=== PATIENT | male | born 1990 | race Caucasian/White ===

== ENCOUNTER → 2019-02-20 13:27 | Outpatient (CLI) | payer MEDICAID, SELFPAY | PROVIDERS: PCP Family Medicine; Visit Provider Orthopaedic Surgery | DX: M25.561 Pain in right knee (principal) ==

== ENCOUNTER → 2019-03-18 08:41 | Outpatient (CLI) | payer MEDICAID, SELFPAY ==
--- NOTE | 2019-03-18 08:44 | CA_ITS ---
APPROVED REPORT EXAM: Comprehensive 2D, Doppler, and color-flow Echocardiogram Physical Therapy Asst: Elin Li, RT(R) Ht: 5 ft 9 in Wt: 205lbs BSA: 2.09 BP: 119/75 mmHg Indications: Chest Pain, Hypertension/HDD, smoker, history of heart surgery at age of 12, VSD repair? 2D Dimensions LVOT 2.10 cm (M/F) 1.5-2.5 M-Mode Dimensions RVDd 2.20 cm (0.9-2.6) LA Diam 4.40 cm (1.9-4.0) LVDd 4.20 cm (3.5-5.7) Ao Diam 2.70 cm (2.0-3.7) LVDs 3.10 cm (3.5-5.7) AV Cusp 2.00 cm (1.5-2.6) IVSd 0.90 cm (0.6-1.1) PWd 0.90 cm (0.6-1.1) EF (Teich) 51.80% FS 26.20% EDV (Teich) 78.60 mL ESV (Teich) 37.90 mL LV Diastology E/A Ratio 1.2 MED E' 11.00 (< 7 cm/sec) E'/MED E' Ratio 8.90 (>14) LAT E' 15.00 (<10 cm/sec) E/LAT E' Ratio 6.50 (>14) Mitral Valve MV E Max Baljit. 97.40 (40-130 cm/s) MV A Velocity 80.20 (40-130 cm/s) E/A Ratio 1.20 Left Ventricle Left atrium is normal size, left ventricle is normal size, there is no concentric left ventricular hypertrophy, visually estimated ejection fraction 55% with no regional wall motion abnormality, there is abnormal septal motion. Diastolic parameters are within normal range. Right Ventricle Right atrium and right ventricular normal size and contractility. Aortic Valve Aortic valve is minimally thickened and fibrosed. There is no aortic stenosis aortic insufficiency. Mitral Valve Mitral valve is grossly normal, there is mild mitral regurgitation. Tricuspid Valve Tricuspid valve is grossly normal, there is mild tricuspid regurgitation, tricuspid regurgitation jet velocity is inadequate for calculation of the right ventricular systolic pressure. Pulmonic Valve Pulmonic valve is poorly visualized, the pulmonic outflow velocity is increased to 2 m/s, resulting in a peak instantaneous gradient of 16 mmHg, this represents mild pulmonic stenosis, there is mild pulmonic insufficiency present. Great Vessels Aortic root is normal size. Pericardium No significant pericardial effusion noted. Conclusion 1. Normal left ventricular size, preserved left ventricular systolic function, visually estimated ejection fraction 55% with no regional wall motion abnormality, diastolic parameters are within normal range, there is abnormal septal motion. 2. Mild mitral and tricuspid regurgitation 3. The pulmonic valve is not well visualized, the pulmonic outflow velocity increased to 2 m/s, resulting in a peak instantaneous gradient of 16 mmHg, this likely represents mild pulmonic stenosis, there is mild pulmonic insufficiency. 4. No significant pericardial effusion noted. Electronically signed by : Sammy Alvarado, 03/19/2019 06:15:42
== END ==
PROVIDERS: PCP Family Medicine; Visit Provider Urology
DX: I42.0 Dilated cardiomyopathy (principal); R07.89 Other chest pain; F17.200 Nicotine dependence, unspecified, uncomplicated
CPT/HCPCS: 93306

== ENCOUNTER → 2019-04-04 14:17 | Outpatient (CLI) | payer MEDICAID, SELFPAY ==
--- NOTE | 2019-04-04 14:23 | MR_ITS ---
PROCEDURE: MR KNEE RT WO CON CLINICAL INDICATION: evaluate for MCL tear Twisting injury with pain and popping COMPARISON: XR KNEE RT 3V from 02/04/2019 TECHNIQUE: Routine multiplanar multi echo sequences are performed without gadolinium enhancement. FINDINGS: The cruciate ligaments, collateral ligaments, the popliteal tendon and quadriceps tendon are intact. There is a horizontal tear involving the posterior horn of the medial meniscus posteriorly. The tear does not appear to extend to the articular surface but does appear to extend to the peripheral aspect of the meniscus posteriorly. There is mild thinning of the patellar cartilage with mild osteoarthritic change at the patellofemoral joint. There is increased T2 signal involving the patella centrally and inferiorly as well as the medial and lateral femoral condyles peripherally. There is a small knee joint effusion IMPRESSION: 1. Horizontal tear of the posterior horn of the medial meniscus extending to the posterior edge of the meniscus but not involving the articular surface 2. Osteoarthritic change of the patellofemoral joint. 3. Mild bone marrow edema of the patella and the peripheral aspect of the medial and lateral femoral condyle which may be posttraumatic/due to contusion. 4. Small knee joint effusion Dictated by: Corey Wood MD 04/04/2019 18:25 Electronically signed by Corey Wood MD in [place] 04/05/2019 06:41
== END ==
PROVIDERS: PCP Family Medicine; Visit Provider Orthopaedic Surgery
DX: S83.411A Sprain of medial collateral ligament of right knee, initial encounter (principal)
CPT/HCPCS: 73721

== ENCOUNTER → 2020-03-15 10:28 | Outpatient (CLI) | payer MEDICAID, SELFPAY ==
--- NOTE | 2020-03-15 10:35 | CA_ITS ---
APPROVED REPORT EXAM: Comprehensive 2D, Doppler, and color-flow Echocardiogram Potato Grader: Azeb Cabral RDCS Ht: 5 ft 9 in Wt: 232lbs BSA: 2.20 BP: 98/75 mmHg Indications: LACEY,DOESMOKER, H/O PULMONIC STENOSIS 2D Dimensions LVOT 1.96 cm (M/F) 1.5-2.5 M-Mode Dimensions RVDd 2.24 cm (0.9-2.6) LVDd 5.02 cm (3.5-5.7) LVDs 3.80 cm (3.5-5.7) IVSd 0.76 cm (0.6-1.1) PWd 0.61 cm (0.6-1.1) EF (Teich) 48.00% FS 24.30% EDV (Teich) 119.30 mL ESV (Teich) 62.00 mL LV Diastology E/A Ratio 1.03 Mitral Valve MV A Velocity 75.00 (40-130 cm/s) Left Ventricle Left atrium is normal size, left ventricle is normal size, there is no concentric left ventricular hypertrophy, visually estimated ejection fraction 55% with no regional wall motion abnormality. Diastolic parameters are within normal range. Right Ventricle Right atrium and right ventricular normal size and contractility. Aortic Valve Aortic valve is grossly normal, there is no aortic stenosis or aortic insufficiency. Mitral Valve Mitral valve is grossly normal, there is mild mitral regurgitation. Tricuspid Valve Tricuspid valve grossly normal, there is mild tricuspid regurgitation, tricuspid regurgitation jet velocity is inadequate for calculation of the right ventricular systolic pressure. Pulmonic Valve Pulmonic valve is poorly visualized. There is increased velocity of 2.5 m/s across pulmonic valve the mean gradient and peak gradient is not calculated, this likely represents mild pulmonic stenosis. There is no significant pulmonic insufficiency seen. Great Vessels Aortic root is normal size. Pericardium No significant pericardial effusion noted Conclusion 1. Normal left ventricular size, preserved left ventricular systolic function, visually estimated ejection fraction 55% with no regional wall motion abnormality, diastolic parameters are within normal range. 2. Mild mitral and tricuspid regurgitation. 3. Likely mild pulmonic stenosis as described above. 4. No significant pericardial effusion noted. Electronically signed by : Sammy Alvarado 03/15/2020 20:49:38
== END ==
PROVIDERS: PCP Family Medicine; Visit Provider Nurse Practitioner Family
DX: R06.00 Dyspnea, unspecified (principal); R07.89 Other chest pain
CPT/HCPCS: 93306

== ENCOUNTER → 2021-03-09 08:32 | Outpatient (CLI) | payer MEDICAID, SELFPAY ==
--- NOTE | 2021-03-09 08:35 | CA_ITS ---
APPROVED REPORT EXAM: Comprehensive 2D, Doppler, and color-flow Echocardiogram Process Control Programmer: Sandrine Otto CRT Ht: 5 ft 9 in Wt: 216lbs BSA: 2.13 BP: 113/70 mmHg Indications: PV Stenosis,, CM, abn ekg 2D Dimensions LVOT 1.89 cm (M/F) 1.5-2.5 LA Volume 36.00 mL LA Volume Index 16.90 mL/m2 (M/F) 16-34 M-Mode Dimensions RVDd 3.68 cm (0.9-2.6) LA Diam 3.45 cm (1.9-4.0) LVDd 3.98 cm (3.5-5.7) Ao Diam 3.83 cm (2.0-3.7) LVDs 2.71 cm (3.5-5.7) IVSd 0.84 cm (0.6-1.1) PWd 0.64 cm (0.6-1.1) EF (Teich) 60.50% FS 31.90% EDV (Teich) 69.20 mL TAPSE 1.96 (<1.7) ESV (Teich) 27.30 mL LV Diastology E Decel Time 217.00 (160-240 msec) E/A Ratio 1.29 MED E' 9.10 (< 7 cm/sec) MED A' 6.90 cm/s E'/MED E' Ratio 9.18 (>14) LAT E' 13.70 (<10 cm/sec) LAT A' 11.10 cm/s E/LAT E' Ratio 6.09 (>14) Aortic Valve AO Peak GR. 6.70 mmHg Mitral Valve MV A Velocity 65.00 (40-130 cm/s) E/A Ratio 1.29 MV Decel. Time 217.00 (160-240 ms) Pulmonary Valve PV Peak Velocity 145.00 (50-150 cm/s) Tricuspid Valve TR P. Velocity 195.00 cm/s RAP Estimate 10.00 mmHg RVSP 25.20 mmHg Left Ventricle Left atrium is normal size, left ventricle is normal size, there is no concentric left ventricular hypertrophy, visually estimated ejection fraction 55% with no regional wall motion abnormality. Diastolic parameters are within normal range. Right Ventricle Right atrium and right ventricle are normal size and contractility. Aortic Valve Aortic valve is grossly normal, there is no aortic stenosis or aortic insufficiency. Mitral Valve Mitral valve is grossly normal, there is trace mitral regurgitation. Tricuspid Valve Tricuspid valve grossly normal, there is trace tricuspid regurgitation, tricuspid regurgitation jet velocity is inadequate for calculation of the right ventricular systolic pressure. Pulmonic Valve Pulmonic valve leaflets are not well visualized, the maximum pulmonic outflow velocity recorded 2 m/s resulting in a peak instantaneous gradient of 16 mmHg, represents mild pulmonic stenosis, there is mild pulmonic insufficiency. Great Vessels Aortic root is normal size. Inferior vena cava is normal size with normal inspiratory collapse. Pericardium No significant pericardial effusion noted Conclusion 1. Normal left ventricular size, preserved left ventricular systolic function, visually estimated ejection fraction 55% with no regional wall motion abnormality, diastolic parameters are within normal range. 2. Likely mild pulmonic stenosis, peak gradient is only 16 mmHg, valve itself is not well visualized. There is mild pulmonic insufficiency. 3. No significant pericardial effusion noted. Electronically signed by : Sammy Alvarado MD 03/10/2021 10:25:50
--- NOTE | 2021-03-09 08:35 | CA_ITS ---
APPROVED REPORT Exam: Exercise Treadmill Technologist: Catia Leslie Ht: 5 ft 9 in Wt: 216 lbs BSA: 2.13 m2 HR: 68 bpm BP: 122/67 mmHg Indications: Chest pain Medical History Medications: Isosorbide,,,,, Aspirin,,,,, Carvedilol,,,,, LoraTidine,,,,, Stress Test Details Test: Jose HR Resting HR: 72 bpm Max Heart Rate (APMHR): 189.395910 bpm Max HR Achieved: 148 bpm Target HR (85% APMHR): 160.588797 bpm % of APMHR: 78.31 Recovery HR: 79 bpm BP Resting BP: 122.0/67.0 mmHg Max BP: 154.0/89.0 mmHg Recovery BP: 117.0/80.0 mmHg ECG Resting ECG: NORMAL SINUS RHYTHM Clinical Exercise duration: 09:16 min Highest Stage Achieved: Exercise capacity: 10.1 METs Stress ECG Conclusion Patient exercised 9:16 on Jose Protocol. Test stopped due to shortness of air, fatigue. Symptoms: No chest pain Arrhythmias/Ectopy: None ST-T Changes: Normal ST response to exercise. Conclusion: Normal GXT to heart rate achieved (78% of PM). Blunted heart rate response on Carvedilol. GXT only (no imaging). Test Summary REST . . . . . . . Sitting REST . . . . . . . Standing REST 03:18 0.0 0.0 72 . 122/ 67 . . Stage 1 01:00 10.0 1.7 98 . . . . Stage 1 02:00 10.0 1.7 101 . . . . Stage 1 03:00 10.0 1.7 99 . 134/ 80 . . Stage 2 01:00 12.0 2.5 111 . . . . Stage 2 02:00 12.0 2.5 115 . . . . Stage 2 03:00 12.0 2.5 114 . 140/ 82 . . Stage 3 01:00 14.0 3.4 128 . . . . Stage 3 02:00 14.0 3.4 133 . . . . Stage 3 03:00 14.0 3.4 138 . 148/ 80 . . Stage 4 00:16 16.0 4.2 142 . . . Stop exercise at 09:16 RECOVERY 01:00 0.0 0.0 120 . 150/ 76 . . RECOVERY 02:00 0.0 0.0 92 . 150/ 76 . . RECOVERY 03:00 0.0 0.0 87 . 154/ 89 . . RECOVERY 04:00 0.0 0.0 82 . 135/ 79 . . RECOVERY 05:00 0.0 0.0 80 . 117/ 80 . . RECOVERY 05:15 0.0 0.0 80 . 117/ 80 . . Electronically signed by : Sammy Alvarado MD 03/10/2021 09:52:40
== END ==
PROVIDERS: PCP Family Medicine; Visit Provider Nurse Practitioner Family
DX: R07.89 Other chest pain (principal); R06.00 Dyspnea, unspecified; I37.0 Nonrheumatic pulmonary valve stenosis; R94.31 Abnormal electrocardiogram [ECG] [EKG]; F41.9 Anxiety disorder, unspecified; F17.200 Nicotine dependence, unspecified, uncomplicated
CPT/HCPCS: 93017; 93306

== ENCOUNTER → 2022-10-04 08:21 | Outpatient (CLI) | payer MEDICAID, SELFPAY ==
[2022-10-04 10:09] LABS: Blood Urea Nitrogen 19 mg/dl (9-20); Estimated Glomerular Filt Rate 86 ml/min (>60); GFR (African American) 104 ML/MIN (>60)
== END ==
PROVIDERS: PCP Family Medicine; Visit Provider Nurse Practitioner Family
DX: Z01.812 Encounter for preprocedural laboratory examination (principal)
CPT/HCPCS: 36415; 82565; 84520

== ENCOUNTER → 2022-10-05 08:12 | Outpatient (CLI) | payer MEDICAID, SELFPAY ==
[2022-10-05 08:45] VITALS: BMI 32.5
[2022-10-05 08:53] VITALS: BP 127/73; PULSE 58; RESP 18; TEMP 36.2; O2SAT 98
[2022-10-05 09:20] VITALS: BP 117/77; PULSE 55; RESP 18; O2SAT 100
== END ==
PROVIDERS: PCP Family Medicine; Visit Provider Nurse Practitioner Family
DX: R07.89 Other chest pain (principal); R94.31 Abnormal electrocardiogram [ECG] [EKG]; I10 Essential (primary) hypertension; I37.0 Nonrheumatic pulmonary valve stenosis; I42.0 Dilated cardiomyopathy; F17.200 Nicotine dependence, unspecified, uncomplicated
CPT/HCPCS: 75574; Q9967

== ENCOUNTER → 2022-11-02 10:34 | Outpatient (CLI) | payer MEDICAID, SELFPAY | PROVIDERS: PCP Internal Medicine Cardiovascular Disease; Visit Provider Nurse Practitioner Family | DX: R07.89 Other chest pain (principal); I42.0 Dilated cardiomyopathy; I37.0 Nonrheumatic pulmonary valve stenosis; I10 Essential (primary) hypertension; R94.31 Abnormal electrocardiogram [ECG] [EKG]; F17.200 Nicotine dependence, unspecified, uncomplicated | CPT/HCPCS: 93306 ==

== ENCOUNTER 2022-11-13 17:46 | Emergency (ER) | payer MEDICAID, SELFPAY ==
[2022-11-13 17:51] VITALS: BP 131/84; PULSE 79; O2SAT 100
[2022-11-13 17:54] VITALS: BP 131/84; PULSE 75; RESP 20; TEMP 36.6; O2SAT 100; BMI 30.2
[2022-11-13 18:00] VITALS: BP 123/87; PULSE 78; O2SAT 99
--- NOTE | 2022-11-13 18:05 | HMH.EDGENADL ---
Discharge Plan Disposition Patient Disposition: Home, Self-Care Prescriptions Prescriptions: New ciprofloxacin HCl 500 mg tablet 500 mg PO BID Qty: 14 0RF doxycycline hyclate 100 mg capsule 100 mg PO BID Qty: 14 0RF No Action fenofibrate nanocrystallized 145 mg tablet 145 mg PO DAILY Label Comments: TAKE 1 TABLET BY MOUTH EVERY DAY carvedilol 6.25 mg tablet 12.5 mg PO BID Rx Instructions: TAKE 1 TABLET BY MOUTH TWICE A DAY isosorbide mononitrate 30 mg tablet extended release 24 hr 30 mg PO DAILY Rx Instructions: TAKE 1 TABLET BY MOUTH EVERY DAY IN THE MORNING aspirin 81 mg tablet,delayed release (DR/EC) 325 mg PO DAILY Rx Instructions: TAKE 1 TABLET BY MOUTH EVERY DAY Activity Restrictions/Add. Instructions Additional Instructions/Restrictions: Return for worsening pain swelling or any other concerns within the next 48 hours otherwise follow-up with your primary care physician within the next few days Clinical Impressions Clinical Impression: Cellulitis Instructions Patient Instructions: DI for Skin Abscess Discharge ED Provider: Alejandro Benavides General Adult HPI General Chief complaint: Skin/Abscess/Foreign Body Stated complaint: AO 5/10 knot in bend of right arm Time Seen by Provider: 11/13/22 18:00 Mode of Arrival: Ambulatory Source of Information: Patient Limitations: No Limitations Description of Symptoms (Recalled from ER Triage Doc. by RN): pt to ed c/o right elbow knot. pt states he had a nail injury to his right hand x1 week ago and was treated for with abx. pt states he noticed the knot on his elbow today. History of Present Illness HPI narrative: 32-year-old male says that he had a nail injury in his right hand 1 week ago. He was treated with Keflex for 7 days however has ended that prescription and now he feels like he has a knot developing around his elbow and little bit pain in his hand. No swelling redness warmth no numbness weakness or tingling in arms or legs. He was given a tetanus shot 4 years ago Related Data Home Medications Medication Instructions Recorded Confirmed fenofibrate nanocrystallized 145 145 mg PO DAILY Cholesterol 05/22/22 10/10/22 mg tablet aspirin 81 mg tablet,delayed 325 mg PO DAILY heart healthy 10/05/22 10/10/22 release carvedilol 6.25 mg tablet 12.5 mg PO BID bp/hr 10/05/22 10/10/22 isosorbide mononitrate 30 mg 30 mg PO DAILY bp 10/05/22 10/10/22 tablet,extended release 24 hr Previous Rx's Medication Instructions Recorded ciprofloxacin HCl 500 mg tablet 500 mg PO BID #14 tabs 11/13/22 doxycycline hyclate 100 mg capsule 100 mg PO BID #14 caps 11/13/22 Allergies Allergy/AdvReac Type Severity Reaction Status Date / Time No Known Allergies Allergy Verified 10/10/22 12:15 [facility] Disclaimer: The information contained in this section may have been updated after the patient was seen, as this information can be updated by other users. Medical History Abnormal EKG Allergies Anxiety Anxiety Cardiomyopathy Chest pain Coronary artery disease Dyspnea History of gastroesophageal reflux (GERD) HTN (hypertension) Hyperlipidemia Pulmonic stenosis Pulmonic stenosis Urinary tract infection Surgical History History of right coronary artery stent placement S/P cardiac catheterization Family History Other Cancer Coronary artery disease Diabetes Hypertension Social History Smoking Status: Never smoker alcohol intake: never substance use type: denies use current occupational status: unemployed Travel in the last 8 weeks: None caffeine: Yes ROS Obtained: Yes All systems reviewed & no additional complaints except as documented Constitutional Constitutional:
[2022-11-13 18:46] VITALS: BP 101/78; PULSE 76; RESP 19; TEMP 36.6; O2SAT 100
== END 2022-11-13 18:48 | disposition home or self-care (01) ==
PROVIDERS: Emergency Provider Emergency Medicine; PCP Internal Medicine Cardiovascular Disease
DX: L03.113 Cellulitis of right upper limb (principal)
CPT/HCPCS: 99283; 99284

== ENCOUNTER 2024-06-11 12:41 | Outpatient (CLI) | payer MEDICAID, SELFPAY ==
--- NOTE | 2024-06-11 12:43 | CA_ITS ---
APPROVED REPORT EXAM: Comprehensive 2D, Doppler, and color-flow Echocardiogram Business Applications Manager: Laney Qiu, RCS, RVS Ht: 5 ft 9 in Wt: 206lbs BSA: 2.09 BP: 109/65 mmHg Indications: Congenital Pulmonic valve stenosis, catheter based procedurex2 in childhood, Hx-VSD repair, Abn ekg, Smoker, CP, HTN Echo Enhancing Agent Indication: Rule out Shunt Agent(s) / Amount(s) Used: Agitated Saline 20 cc Comments: Positive for interatrial shunt without provocation 2D Dimensions Left Atrium 3.16 cm LA Volume 58.50 mL LA Volume Index 27.676092 mL/m2 (M/F) 16-34 EF AP4 51.90 % GL Strain -17.3 % M-Mode Dimensions RVDd 2.35 cm (0.9-2.6) LA Diam 3.53 cm (1.9-4.0) LVDd 4.73 cm (3.5-5.7) LVDs 3.05 cm (3.5-5.7) IVSd 0.87 cm (0.6-1.1) PWd 0.91 cm (0.6-1.1) EF (Teich) 65.00% EPSs 1.01 cm FS 35.50% EDV (Teich) 103.90 mL TAPSE 2.06 (<1.7) ESV (Teich) 36.40 mL LV Diastology E Decel Time 130 (160-240 msec) E/A Ratio 1.22 MED A' 10.20 cm/s LAT A' 10.80 cm/s Aortic Valve ADELFO Index 1.06 cm2/m2 AoV Peak Baljit. 151.0 (50-130 cm/s) AI PHT 537.00 ms AO Peak GR. 9.10 mmHg AO Mean GR. 3.80 (<5 mmHg) AO VTI 28.5 (18-25 cm) ADELFO (VTI) 2.26 (2.5-4.5 cm2) Mitral Valve MV A Velocity 65.0 (40-130 cm/s) E/A Ratio 1.22 Pulmonary Valve PV Peak Velocity 182.0 (50-150 cm/s) CA End VMAX 189.0 cm/s Left Ventricle The left ventricle is normal size. Left ventricular systolic function is mildly decreased. There is normal left ventricular wall thickness. There is mild global hypokinesis present. The septum is asynchronous. The left ventricular diastolic function is normal. No evidence of residual VSD. LVEF is 45%. Right Ventricle The right ventricle is normal size. The right ventricular systolic function is normal. Atria The left atrium size is normal. The right atrium size is normal. There is presence of left to right interatrial shunt on color Doppler. Agitated saline administration also demonstrates presence of interatrial shunt. Aortic Valve The aortic valve opens well. There is no aortic valvular stenosis. Mild to moderate aortic regurgitation. Mitral Valve The mitral valve is normal in structure. No evidence of mitral valve stenosis. Mild mitral regurgitation. Tricuspid Valve Tricuspid valve is grossly normal in structure and function. Trace tricuspid regurgitation. There is insufficient TR jet to estimate RVSP. Pulmonic Valve History of congenital pulmonic stenosis. The pulmonary valve is normal in structure. Moderate pulmonic regurgitation. Great Vessels The aortic root is normal in size. IVC is normal in size and collapses >50% with inspiration. Pericardium There is no pericardial effusion. Other Information Study Quality: Fair Conclusion Mildly reduced LV systolic function (LVEF 45%). History of congenital pulmonic stenosis, now with moderate PI. Mild to moderate AI. s/p VSD repair. No evidence of residual VSD. Presence of interatrial shunt (positive bubble study at rest and with sniff and Valsalva maneuvers). Further evaluation for LV systolic function, as well as valvular diseases, and presence/location/sizing of the interatrial shunt is recommended with cardiac MRI (cardiomyopathy protocol) + MERLYN. Electronically signed by : Delia Nuñze MD 06/22/2024 11:48:28
== END 2024-06-11 23:59 | disposition home or self-care (01) ==
LOC: RT 12:41
PROVIDERS: PCP Internal Medicine Cardiovascular Disease; Visit Provider Physician Assistant
DX: I37.0 Nonrheumatic pulmonary valve stenosis (principal)
CPT/HCPCS: 93306

== ENCOUNTER 2024-09-03 09:29 | Outpatient (CLI) | payer MEDICAID, SELFPAY ==
[2024-09-03 09:58] LABS: Anion Gap 6.4 mEq/L (5-15); Blood Urea Nitrogen 18 mg/dl (9-20); Calcium 9.3 mg/dl (8.4-10.2); Carbon Dioxide 29 mmol/L (22.0-30.0); Chloride 107 mmol/L (98-107); Estimated Glomerular Filt Rate 86 ml/min (>60); GFR (African American) 103 ML/MIN (>60); Glucose 95 mg/dl (74-100); Potassium 4.4 mmoL/L (3.5-5.1); Sodium 138 mmol/L (136-145)
[2024-09-03] MEDS: 0.9% SODIUM CHLORIDE 20ML VIAL 20 ML IV (11:53)
[2024-09-03] MEDS: SODIUM CHLORIDE 0.9% 10ML SYR (RAD ONLY) 10 ML IV (11:53)
[2024-09-03] MEDS: GADOTERIDOL INJ 20ML SYRINGE 20 ML IV (11:53)
== END 2024-09-03 23:59 | disposition home or self-care (01) ==
LOC: RAD 09:29
PROVIDERS: PCP Internal Medicine Cardiovascular Disease; Visit Provider Physician Assistant
DX: I42.8 Other cardiomyopathies (principal); I10 Essential (primary) hypertension; Z87.74 Personal history of (corrected) congenital malformations of heart and circulatory system
CPT/HCPCS: 36415; 75561; 80048; A9576

== ENCOUNTER 2024-12-16 07:51 | Day surgery (SDC) | payer MEDICAID, SELFPAY ==
[2024-12-15 14:24] VITALS: BMI 31.0
[2024-12-16] MEDS: LACTATED RINGERS 1000ML 1,000 ML 50 ML IV (08:23)
[2024-12-16 08:26] VITALS: BP 108/63; PULSE 63; RESP 18; TEMP 36.3; O2SAT 98
--- NOTE | 2024-12-16 08:34 | ECG_ITS ---
APPROVED REPORT Exam: Resting ECG HR:56 bpm ECG Measurements Heart Rate 56 AXES NM 193 P 40 QRSd 96 QRS 8 QT 392 T 18 QTc 383 Conclusion SINUS BRADYCARDIA BORDERLINE ECG UNCONFIRMED REPORT Electronically signed by : Fran Mike MD 12/17/2024 08:50:43
[2024-12-16 08:37] LABS: Basophils % 0.6 % (0.1-2.0); Eosinophils # 0.1 Kmm3 (0.0-0.4); Eosinophils % 1.3 % (0.1-12.0); Hematocrit 44.4 % (42.0-52.0); Hemoglobin 15.1 g/dL (14.1-18.0); Immature Granulocytes # 0.01 10^3uL; Immature Granulocytes % 0.1 %; Lymphocytes # 2.4 K/mm3 (0.7-4.5); Lymphocytes % 34.2 % (10-50); Mean Corpuscular Hemoglobin 30.3 pg (27.0-31.2); Mean Platelet Volume 9.7 fl (7.4-10.4); Monocytes # 0.7 K/mm3 (0.1-1.0); Monocytes % 9.7 % (1.7-9.3); Neutrophils # 3.9 K/mm3 (1.8-7.8); Neutrophils % 54.1 % (37.0-80.0); Nucleated Red Blood Cells # 0 10^3/uL; Nucleated Red Blood Cells % 0 %; Platelet Count 213 K/mm3 (142-424); Red Blood Count 4.99 M/mm3 (4.60-6.20); Red Cell Distribution Width 12.9 % (11.5-17.5); Red Cell Distribution Width-SD 42.1 fL; White Blood Count 7.1 K/mm3 (4.8-10.8)
[2024-12-16 08:50] LABS: Chloride 104 mmol/L (98-107); INR 0.97 (0.9-1.1); Potassium 4.1 mmoL/L (3.5-5.1); Prothrombin Time 10.8 seconds (10.1-12.5); Sodium 138 mmol/L (136-145)
[2024-12-16 08:53] LABS: Anion Gap 12.1 mEq/L (5-15); Blood Urea Nitrogen 17 mg/dl (9-20); Carbon Dioxide 26 mmol/L (22.0-30.0); Creatinine Clearance Estimated 139 mL/min (50-200); Estimated Glomerular Filt Rate 85 ml/min (>60); GFR (African American) 103 ML/MIN (>60)
[2024-12-16 08:54] LABS: Calcium 9.1 mg/dl (8.4-10.2); Glucose 101 mg/dl (74-100)
--- NOTE | 2024-12-16 09:00 | CA_ITS ---
APPROVED REPORT EXAM: Comprehensive 2D, Doppler, and color-flow Echocardiogram Professional Poker Player: Christianne MelaramanNERY Ht: 5 ft 9 in Wt: 214lbs BSA: 2.13 BP: 120/75 mmHg Indications: PULMONIC STENOSIS AND VSD REPAIR A CHILD Procedure After obtaining informed consent, patient underwent transesophageal echo in the [facility]. Type of Sedation : MAC Sedation start time: 10:05 Case end Time: 10:20 Transesophageal probe was inserted and advanced into esophagus without difficulty by Dr. Joe Nuñez. The MERLYN was performed without complications. Throughout the procedure, the blood pressure, pulse oximetry, cardiac rhythm, and rate were monitored. The patient tolerated the procedure without adverse effects. Recovery from conscious sedation was uneventful and vital signs were stable. Left Ventricle The left ventricle is normal size. The left ventricular systolic function is low-normal. There is normal left ventricular wall thickness. There is normal LV segmental wall motion. History of VSD s/p repair during childhood. There is no residual ventricular septal defect visualized. LVEF is 50%. Right Ventricle The right ventricle is normal size. The right ventricular systolic function is normal. Atria The left atrium size is normal. No thrombus is visualized in the left atrium or appendage. The right atrium size is normal. There is a PFO with presence of left to right interatrial shunt. The PFO tunnel length measures 0.8 cm. The tunnel width measures 0.3 cm. Agitated saline administration demonstrates migration of bubbles from the right atrium into the left atrium through the PFO. Aortic Valve The aortic valve is normal in structure. There is no aortic valvular stenosis. Trace aortic regurgitation. Mitral Valve The mitral valve is normal in structure. No evidence of mitral valve stenosis. Trace mitral regurgitation. Tricuspid Valve Tricuspid valve is grossly normal in structure and function. Trace tricuspid regurgitation. There is insufficient TR jet to estimate RVSP. Pulmonic Valve History of congenital pulmonic stenosis s/p balloon valvuloplasty. Mild pulmonic regurgitation. Great Vessels The aortic root is normal in size. The ascending aorta is normal in size. IVC is normal in size and collapses >50% with inspiration. Pericardium There is no pericardial effusion. Other Information Study Quality: Fair Conclusion Normal biventricular systolic function. History of congenital pulmonic stenosis s/p valvuloplasty during childhood. Mild PI. History of child with VSD s/p repair. No evidence of residual VSD. There is a PFO with presence of left to right interatrial shunt. The PFO tunnel length measures 0.8 cm. The tunnel width measures 0.3 cm. Agitated saline administration demonstrates migration of bubbles from the right atrium into the left atrium through the PFO. Electronically signed by : Delia Nuñez MD 12/25/2024 14:42:24
--- NOTE | 2024-12-16 09:01 | EXP.ANES.CKL ---
[facility] Disclaimer: The information contained in this section may have been updated after the patient was seen, as this information can be updated by other users. Medical History Urinary tract infection Anxiety History of gastroesophageal reflux (GERD) Allergies Hyperlipidemia Pulmonic stenosis Coronary artery disease Cardiomyopathy HTN (hypertension) Anxiety Abnormal EKG Pulmonic stenosis Dyspnea Chest pain Surgical History History of ventricular septal defect repair History of right coronary artery stent placement S/P cardiac catheterization Family History Other Cancer Coronary artery disease Diabetes Hypertension Social History Smoking Status: Current every day smoker tobacco type: cigarettes packs per day: 1 alcohol intake: never substance use type: denies use current occupational status: unemployed Travel in the last 8 weeks?: None caffeine: Yes Have you lived/traveled outside [place] in past 30 days?: No Contact w/someone who lives/traveled outside US past 30 days?: No Exposure to someone with infectious disease in past 14 days?: No Do you have a fever (greater than 100.4 F or 38 C)?: No Have you tested positive for COVID-19?: No Exposed to someone with COVID-19 in past 14 days?: No Do you have a sore throat?: No Do you have a cough?: No Do you have any weakness?: No Do you have any diarrhea?: No Are you experiencing any unusual bleeding?: No Do you have any muscle aches/pain?: No Do you have any abdominal pain?: No Are you experiencing loss of taste or smell?: No [facility] Anesthesia Checklist Patient Identification Patient Identification: Arm Band Structural Data Admitted From: Home Planned Operative Procedure/s: MERLYN Consent for Planned Operative Procedure(s) Verified: Yes Verified Documents: Surgical Consent and History and Physical NPO Status Verified Time NPO: 00:00 Additional verifications Anesthesia Reactions: No Hx Blood Transfusions: No Blood Transfusion Reaction: No Airway Assessment Mallampati Score:: Class II C-Spine Mobility Assessed: Yes TMJ Mobility Assessed: Yes Dentition: Good Dentition Neurological Assessment Level of Consciousness: Awake, Alert and Appropriate Anesthesia Plan Anesthesia Risk discussed: Yes Anesthesia Plan: Verified ASA Class: III Anesthesia Type: MAC
[2024-12-16 10:11] VITALS: BP 89/46; PULSE 71; RESP 17; TEMP 36.9; O2SAT 98
[2024-12-16 10:26] VITALS: BP 139/90; PULSE 75; RESP 17; O2SAT 99
[2024-12-16 10:41] VITALS: BP 137/92; PULSE 70; RESP 17; O2SAT 98
== END 2024-12-16 10:45 | disposition home or self-care (01) ==
PROVIDERS: PCP Internal Medicine Cardiovascular Disease; Visit Provider Internal Medicine
DX: I42.8 Other cardiomyopathies (principal); R94.39 Abnormal result of other cardiovascular function study; I25.10 Atherosclerotic heart disease of native coronary artery without angina pectoris; I10 Essential (primary) hypertension; E78.5 Hyperlipidemia, unspecified; Z86.79 Personal history of other diseases of the circulatory system; Z95.5 Presence of coronary angioplasty implant and graft; F17.210 Nicotine dependence, cigarettes, uncomplicated; Z79.82 Long term (current) use of aspirin; Z79.899 Other long term (current) drug therapy; Z82.49 Family history of ischemic heart disease and other diseases of the circulatory system
CPT/HCPCS: 80048; 85025; 85610; 93005; 93270; 93312; 93319; J2003; J2704; J7120